=== PATIENT | female | born 1995 | race Caucasian/White ===

== ENCOUNTER 2017-02-15 16:26 | Outpatient (CLI) | payer BC ==
[~2017-02-15 16:26] MED LIST: ISOVUE-370 76%-LOCM 1 ML ONE
--- NOTE | 2017-02-15 20:18 | CT ---
CT ABDOMEN WITH IV CONTRAST CT PELVIS WITH IV CONTRAST 02/15/17 HISTORY: Continuous severe abdominal pain. Patient has had left lower quadrant abdominal pain for 1.5 months. Patient also has nausea and constipation. History of prior appendectomy nine months ago. COMPARISON: 05/02/16. Low density area is seen within the left hepatic lobe adjacent to the falciform ligament probably re lated to either small focal area of fatty infiltration or perfusion defect. Liver is otherwise umm l in appearance. The lung bases, spleen, pancreas, bilateral adrenal glands, kidneys, abdominal aorta, urinary bladde r, opacified bowel, and uterus as well as adnexal structures demonstrate a normal CT appearance for arterial phase of imaging. The phlegmon and inflammatory changes seen adjacent to the cecal apex in the right pericolonic gutte r have resolved. There is a moderate amount of retained fecal material seen in the colon suggesting constipation. Sclerotic focus in the left intertrochanteric region is again seen and probably represents a small b [place]. IMPRESSION: 1. No acute findings are seen in the abdomen or pelvis. 2. Resolution of phlegmon and inflammatory changes in the right lower quadrant as well as resol ution of the colonic wall thickening adjacent to the cecal apex. Free fluid is also resolved compare d to the prior exam. 3. Constipation. POS: JULIA
== END 2017-02-15 16:27 | disposition home or self-care (01) ==
LOC: CT 16:26
PROVIDERS: ATTEND Surgery
DX: R10.9 Unspecified abdominal pain (principal); K59.00 Constipation, unspecified
CPT/HCPCS: 74177